=== PATIENT | male | born 1975 | race Caucasian/White ===

== ENCOUNTER 2017-02-14 23:17 | Emergency (ER) | payer OTHER ==
[~2017-02-14] VITALS: Ht 182.9 cm; Wt 89.9 kg
[~2017-02-14 23:17] MED LIST: NOHOMEMEDS; PERCOCET 5/31 TABLET PO
[2017-02-15 01:25] VITALS: BP 131/79
== END 2017-02-15 01:25 | disposition home or self-care (01) ==
LOC: EME 23:17
DX: G89.29 Other chronic pain (principal); M25.512 Pain in left shoulder; F17.200 Nicotine dependence, unspecified, uncomplicated
CPT/HCPCS: 99281; 99283